=== PATIENT | male | born 1985 | race African-American/Black ===

== ENCOUNTER 2020-10-02 23:17 | Emergency (ER) | payer MEDICAID ==
[~2020-10-02] VITALS: Ht 188 cm; Wt 100.0 kg
[2020-10-02] MEDS ORDERED: SODIUM CHLORIDE 0.9% 1,000 ML IV ONE (23:30)
[2020-10-02] MEDS ORDERED: MORPHINE SULFATE 4 MG/ML CPJ (NOT FOR IM USE) IV NR (23:30)
[2020-10-02] MEDS ORDERED: CEFAZOLIN 1000MG PREMIX 50 ML IV ONE (23:30)
[2020-10-02 23:40] LABS: CLARITY URINE CLEAR (CLEAR); COLOR URINE YELLOW (YELLOW); KETONES URINE TRACE (NEGATIVE); LEUKOCYTE ESTERASE URINE NEGATIVE (NEGATIVE); NITRITE URINE NEGATIVE (NEGATIVE); OCCULT BLOOD URINE 2+ (NEGATIVE); PH URINE 5.5 (4.5-8.0); PROTEIN URINE 2+ (NEGATIVE); SPECIFIC GRAVITY URINE 1.034 (1.005-1.030)
[2020-10-02 23:42] LABS: BASOPHILS % 0.4 % (0.0-2.0); CHLORIDE 108 mEq/L (98-107); EOSINOPHILS % 3.6 % (0.0-5.0); HEMATOCRIT. 47.4 % (42.0-52.0); HEMOGLOBIN. 16.3 g/dL (14.0-18.0); LYMPHOCYTES % 24.6 % (20.0-50.0); MEAN CORPUSCULAR HEMOGLOBIN 28.8 pg (28.0-32.0); MEAN CORPUSCULAR VOLUME 83.7 fL (80.0-94.0); MEAN PLATELET VOLUME 8.2 fl (7.4-10.4); MONOCYTES % 7.9 % (2.0-8.0); NEUTROPHILS % 63.5 % (40.0-76.0); PLATELET 207 x1000/uL (130-400); RED BLOOD CELL COUNT 5.67 mill/uL (4.7-6.1); RED CELL DISTRIBUTION WIDTH 14.1 % (11.6-14.6)
[2020-10-02 23:45] LABS: PARTIAL THROMBOPLASTIN TIME 23.4 sec (23.4-31.0); PROTHROMBIN TIME 10.9 sec (9.6-11.0)
[2020-10-03] MEDS ORDERED: IOHEXOL-350 100 ML BOTTLE ONE (00:09)
[2020-10-03 02:35] VITALS: BP 160/98
== END 2020-10-03 03:10 | disposition home or self-care (01) ==
LOC: ER 23:17
DX: S71.141A Puncture wound with foreign body, right thigh, initial encounter (principal); Z98.890 Other specified postprocedural states; Z87.828 Personal history of other (healed) physical injury and trauma; X93.XXXA Assault by handgun discharge, initial encounter; Y93.89 Activity, other specified; Y92.89 Other specified places as the place of occurrence of the external cause
CPT/HCPCS: 36415; 71045; 72170; 73706; 80053; 80320; 81003; 83690; 85025; 85610; 85730; 93005; 96361; 96365; 96375; 99285; J0690; J2270; Q9967; Z7610; G0480

== ENCOUNTER 2023-03-15 03:43 | Emergency (ER) | payer MEDICAID, OTHER ==
[~2023-03-15] VITALS: Ht 188 cm; Wt 100.0 kg
[2023-03-15] MEDS ORDERED: CEFAZOLIN 1000MG PREMIX 50 ML IV ONE (04:00)
[2023-03-15] MEDS ORDERED: KETOROLAC 30MG/ML VIAL IV ONE (04:00)
[2023-03-15] MEDS ORDERED: LIDOCAINE HCL 1% 20ML VIAL (Pyxis) INJ INFIL ONE (04:00)
[2023-03-15 04:02] VITALS: TEMP 98.1; O2SAT 97
[2023-03-15 04:13] LABS: BASOPHILS % 0.4 % (0.0-2.0); EOSINOPHILS % 1.2 % (0.0-5.0); HEMATOCRIT. 43.9 % (42.0-52.0); HEMOGLOBIN. 14.9 g/dL (14.0-18.0); LYMPHOCYTES % 16.5 % (20.0-50.0); MEAN CORPUSCULAR HEMOGLOBIN 27.9 pg (28.0-32.0); MEAN CORPUSCULAR VOLUME 81.9 fL (80.0-94.0); MEAN PLATELET VOLUME 7.8 fl (7.4-10.4); MONOCYTES % 8.5 % (2.0-8.0); NEUTROPHILS % 73.4 % (40.0-76.0); PLATELET 299 x1000/uL (130-400); RED BLOOD CELL COUNT 5.36 mill/uL (4.7-6.1); RED CELL DISTRIBUTION WIDTH 14.2 % (11.6-14.6)
[2023-03-15 04:25] LABS: CHLORIDE 110 mEq/L (98-107)
[2023-03-15 06:28] VITALS: BP 144/91; PULSE 70; RESP 16
== END 2023-03-15 06:50 | disposition home or self-care (01) ==
LOC: ER 03:54
DX: R68.89 Other general symptoms and signs (principal)
CPT/HCPCS: 80053; 85025; 86850; 86900; 86901; 36415; 73590; 96365; 99284; J0690; J3490; Z7610 ×4; J1885

== ENCOUNTER 2023-03-24 10:18 | Emergency (ER) | payer MEDICAID, OTHER ==
[~2023-03-24] VITALS: Ht 188 cm; Wt 100.0 kg
[2023-03-24 10:21] VITALS: BP 150/102; PULSE 79; RESP 16; TEMP 98.6; O2SAT 97
== END 2023-03-24 11:21 | disposition home or self-care (01) ==
LOC: ER 10:31
DX: Z48.02 Encounter for removal of sutures (principal)
CPT/HCPCS: 99281; Z7610